=== PATIENT | female | born 2005 | race Caucasian/White ===

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

== ENCOUNTER 2025-04-12 20:26 | Emergency (ER) | payer OTHER, SELFPAY ==
--- OUTSIDE RECORDS SUMMARY | 2025-04-12 20:26 | XMS_ITS | Encounter Summary ---
Author Organization [facility] Address [address] [place] [id number] Phone Care Team Providers Care Grocery Department Manager Name Role Phone Demi Abdullahi DHIRAJ Primary Care Provider [phone] Reason for Visit * Reason Comments ED Admission Encounter Details Date Type Department Care Team ([facility] Contact Info) Description 04/12/2025 8:26 PM EST - 04/13/2025 1:00 AM [facility] - Patient Ping Social History Tobacco Use Types Packs/Day Years Used Date Smoking Tobacco: Never Assessed Smokeless Tobacco: Never Comments:Has used marijuana, tobacco once or twice. Denies currently use. Alcohol Use Standard Drinks/Week Comments Never 0 (1 standard drink = 0.6 oz pur e alcohol) Hunger/Food Answer Date Recorded In the last 12 months, did y ou or your family ever eat less than you felt you should because there wasn't enough money for food? No 09/22/2024 Stable Housing Answer Date Recorded Are you worried that in the next 2 months you may not have stable housing? No 09/22/2024 Transportation Concerns Answer Date Rec orded In the last 12 months, have you or your family ever had to go without healthcare because you didn't have a way to get there? No 09/22/2024 Hazards in Home Answer Date Recorded Think about the place you li ve. Do you have problems with any of the following? Pests (mice or roaches), mold, no/not working smoke detectors, water leaks, no window guards. No 2024 Financing Utilities Answer Date Recorde d In the last 12 months, has t he electric, gas, oil, or water company threatened to shut off your services in your home? No 09/22/2024 Safety at Home Answer Date Recorded Are you or your family worried about feeling saf e in your home? No 09/22/2024 Outside Support Answer Date Recorded Do you feel that you need mo re support from other people or programs to help you care for yourself or your family? No 09/22/2024 Understanding Health Concerns Answer Da te Recorded Do you need help understandi ng your or your child's healthcare needs (diagnosis, medications, plan, etc.)? No 09/22/2024 Financing Health Concerns Answer Date R ecorded In the last 12 months, was t here a time when your child needed to see a doctor or get medications or supplies but could not because of cost? No 09/22/2024 Missing School or Work Answer Date Theodore rded Did you or your child miss s chool or work because of a health problem that could have been avoided? No 09/22/2024 Child Education Answer Date Recorded Do you have concerns about y our/your child's learning or behavior in school, preschool, or daycare? No 09/22/2024 Comments No Sex and Gender Information Value Date Recorded Sex Assigned at Female 09/17/2023 10:48 AM EDT Legal Sex Female 5:10 PM EDT Gender Identity Female 09/17/2023 10:48 AM EDT Sexual Orientation Not on file documented as of this encounter Plan of Treatment Not on file documented as of this encounter Visit Diagnoses Not on filedocumented in this encounter Care Teams Grocery Department Manager Relationship Specialty Start Date End Date Demi Abdullahi NP [address] [place] [id number] PCP - General Pediatrics 09/10/23 documented as of this encounter
[2025-04-12 20:39] VITALS: BP 122/67; PULSE 102; RESP 16; TEMP 36.4; O2SAT 98; BMI 18.7
[2025-04-12 20:53] LABS: MANUAL DIFF FLAG NO
[2025-04-12 20:55] LABS: Hematocrit 29.9 % (37.0-47.0); Hemoglobin 9.5 g/dl (12.0-16.0); Imm Gran Abs Auto 0.04 X10*3/uL (0.00-0.03); Imm Gran Pct Auto 0.4 % (0.0-0.4); Lymphocytes Absolute Auto 1.8 X10*3/uL (1.2-4.9); Mean Corpuscular HGB Conc 31.8 g/dl (31.0-35.0); Mean Corpuscular Hemoglobin 25.5 pg (27.0-33.0); Mean Corpuscular Volume 80.2 fL (80.0-98.0); NRBC Abs Auto 0.000 X10*3/uL (0.0-0.012); NRBC Pct Auto 0.0 /100WBC (0.0-0.2); Platelet Count 245 X10*3/uL (160-400); Red Blood Count 3.73 X10*6/uL (4.20-5.50); White Blood Count 9.1 X10*3/uL (4.8-10.8)
[2025-04-12 21:16] LABS: Alanine Aminotransferase 9 U/L (0-31); Albumin Level 3.9 g/dL (3.5-5.0); Alkaline Phosphatase 44 U/L (39-117); Anion Gap 10 (12-20); Aspartate Amino Transferase 16 U/L (5-31); Blood Urea Nitrogen 6 mg/dL (9-16); Calcium 8.8 mg/dL (8.4-10.2); Carbon Dioxide 23 mmol/L (22-29); Chloride 109 mmol/L (96-108); Creatinine Clr Calc Pharmacy 169.1; Estimated Glomerular Filt Rate > 60; Potassium 3.7 mmol/L (3.3-5.1); Sodium 138 mmol/L (135-145); Total Protein 6.8 g/dL (6.5-8.0)
--- NOTE | 2025-04-12 22:26 | ED_ITS ---
HPI - General Adult General Chief complaint: General Medical Stated complaint: Issues Time Seen by Provider: 04/12/25 22:20 Source: patient Mode of arrival: ambulatory Limitations: no limitations History of Present Illness ED Provider: Dr. Nasima Marsh HPI narrative: 19-year-old female approximately 18-19 weeks who presents with two days of severe mid-upper back pain. Symptoms began suddenly when she awoke from sleep with a sharp, shooting pain ?around the spine? after possibly stretching awkwardly during sleep. Earlier that evening she had moved bedroom furniture (sister performed heavy lifting, patient moved photo stylist items) without noted injury. Pain localizes to the mid-thoracic paraspinal / scapular region, somewhat worse on right side, and is markedly worsened by movement (standing up, turning over, twisting, reaching overhead, elbows out) and by deep inspiration when pain is at its peak. Pain is minimal while lying flat and at rest. She has taken no medications at home. She also notes a minor headache present since symptom onset that has improved but persists. Denies fever, cough, URI symptoms, abdominal pain, dysuria, bowel changes, vaginal bleeding, or vaginal discharge. No prior similar episodes. Related Data Previous Rx's ?Medication ?Instructions ?Recorded ondansetron 4 mg disintegrating 4 mg PO Q6-8H PRN naus ea and 06/15/24 tablet vomiting #14 tabs hydroxyzine HCl 25 mg tablet 25 mg PO Q8H PRN anxiety #14 tabs 09/14/24 lorazepam 0.5 mg tablet (Ativan) 0.5 mg PO BID PRN anx iety #5 tabs 11/06/24 hydroxyzine HCl 25 mg tablet 25 mg PO TID PRN anxiety #10 tabs 11/08/24 Allergies Allergy/AdvReac Type Severity Reaction Status Date / Time No Known Allergies Allergy Verified 04/12/25 20:41 Review of Systems 2 Review of Systems: as per HPI, full review of systems performed and negative but for the above mentioned pertinent positives and negatives. [facility] Past Medical History Medical History (Updated 04/13/25 @ 00:07 by Nasima Marsh DO) Anxiety disorder with panic attacks Social History Social History Alcohol intake: never Smoked in Last 30 Days: No Use of substances other than those prescribed or required for medical reasons: No Substance Use Type: Marijuana Any prior treatment program specific to substance use: No Advance Directives: No Advance Directives Information Provided: No Patient : Yes Physical Exam ED Exam Exam: GENERAL: Non-toxic appearing, appears uncomfortable. SKIN: Normal skin color for ethnicity, warm, dry, no rashes noted. HEENT:? Normocephalic, atraumatic, no stridor, dry mucous membranes, dentition intact, EOMI. NECK: Soft, supple, full ROM, midline structures nontender, no step-offs, no deformities, no lymphadenopathy. CHEST: Heart regular rhythm, no murmurs, symmetric chest rise and fall. PULMONARY: Clear to auscultation bilaterally, diminished at the bases, no labored breathing, no wheezes/rhales/rhonchi. ABDOMINAL: Soft, gravid, nontender, positive bowel sounds in all quadrants. : Deferred. MUSCULOSKELETAL: Normal tone, full range of motion, no deformities, no peripheral edema, T5-6 paraspinal tenderness to palpation with mild hypertonicity of the paraspinal musculature, no step offs, neurovascularly intact distally. NEURO: Alert and oriented x3, CN II through XII intact, equal strength and sensation bilateral upper and lower extremities, no focal neurologic deficits.? PSYCHIATRIC: Flat affect, fluid speech, good eye contact and appropriate demeanor. Vital Signs: Vital Signs - 24 hr 04/12/25 20:39 04/12/25 22:31 Temperature 97.6 F 98.3 F Pulse Rate 102 H 77 Respiratory Rate 16 14 Blood Pressure 122/67 112/61 Pulse Oximetry 98 100 Oxygen Delivery Method Room Air Room Air BMI result Body Mass Index 18.7 Medications Administered Discontinued Medications Generic Name Dose Route Start Last Admin Trade Name Freq PRN Reason Stop Dose Admin Acetaminophen 325 mg 04/12/25 23:05 04/12/25 23:21 Acetaminophen 325 Mg Tablet PO 04/12/25 23:06 325 mg ONCE ONE Administration Lidocaine 1 patch 04/12/25 23:05 04/12/25 23:19 Lidocaine 4 % Patch Adh..Patch TRANSDERMA 04/12/25 23:06 1 patch ONCE ONE Administration Protocol Medical Decision Making Medical Decision Making MDM Narrative: 19-year-old female at 18-19 weeks with acute musculoskeletal mid- thoracic back/rib pain likely related to muscular strain, with associated improved mild headache. assessment reassuring on bedside US. UTI to be ruled out. Problem #1: Musculoskeletal thoracic back/rib strain Assessment: Acute sharp paraspinal/rib pain precipitated by possible over- stretch or movement while sleeping, exacerbated by movement and deep inspiration; focal tenderness on exam; no radicular symptoms. Plan: * Acetaminophen 325 mg PO x1 dose in ED; advise lowest effective dose, may take up to two tablets at a time, maximum two tablets per dose, up to three times daily as needed. * Topical lidocaine patch applied to area of maximal tenderness for localized analgesia (minimal systemic absorption; safe in ). * Non-pharmacologic measures: warm compress/heating pad and gentle massage as tolerated. * Discharge home after urine results reviewed if no abnormality detected. Problem #2: Intrauterine , 18-19 weeks, routine Assessment: Viable franco gestation; bedside US with heart rate 145 bpm, appropriate size and activity; no vaginal bleeding or abdominal pain. Plan: * Reassured patient of normal status today. * Patient has not yet established care with an PRINCIPAL DATABASE DEVELOPER; has had some appointments at [facility] but no ongoing provider. Problem #3: Mild tension-type headache Assessment: Minor headache, improving; no concerning features. Plan: * Expect improvement with acetaminophen dosing given for back pain. Patient provided instructions on urine sample collection and educated regarding medication use and non-pharmacologic pain relief strategies. Will discharge home after urine results reviewed if no abnormality detected. Differential Diagnosis Differential Diagnoses: The differential diagnosis associated with the presentation includes (as above) Lab Data MDM Lab Attestation statement: I reviewed the patient's lab results. 04/12/25 20:49 04/12/25 20:48 Labs: Lab Results 04/12/25 04/12/25 04/12/25 Range/Units 20:48 20:49 22:34 WBC 9.1 (4.8-10.8) X10*3/uL RBC 3.73 L (4.20-5.50) X10*6/uL Hgb 9.5 L (12.0-16.0) g/dl Hct 29.9 L (37.0-47.0) % MCV 80.2 (80.0-98.0) fL MCH 25.5 L (27.0-33.0) pg MCHC 31.8 (31.0-35.0) g/dl RDW 15.1 (11.0-16.0) % Plt Count 245 D (160-400) X10*3/uL MPV 9.4 (9.4-12.3) fL Immature Gran % (Auto) 0.4 (0.0-0.4) % Neut % (Auto) 71.9 (45-73) % Lymph % (Auto) 19.8 L (20-40) % [place] % (Auto) 6.3 (2-11) % Eos % (Auto) 1.3 (0-4) % Baso % (Auto) 0.3 (0-2) % Lymph # (Auto) 1.8 (1.2-4.9) X10*3/uL [place] # (Auto) 0.6 (0.1-1.2) X10*3/uL Eos # (Auto) 0.1 (0.0-0.4) X10*3/uL Baso # (Auto) 0.0 (0.0-0.2) X10*3/uL Abs Immat Gran (auto) 0.04 H (0.00-0.03) X10*3/uL Absolute Neuts (auto) 6.5 (2.0-8.3) x10*3/uL Absolute Nucleated RBC 0.000 (0.0-0.012) X10*3/uL Nucleated RBC % (auto) 0.0 (0.0-0.2) /100WBC Sodium 138 (135-145) mmol/L Potassium 3.7 (3.3-5.1) mmol/L Chloride 109 H (96-108) mmol/L Carbon Dioxide 23 (22-29) mmol/L Anion Gap 10 L (12-20) BUN 6 L (9-16) mg/dL Creatinine 0.43 L (0.5-1.4) mg/dL Estim Creat Clear Calc 169.1 Estimated GFR > 60 Random Glucose 102 (60-115) mg/dL Calcium 8.8 D (8.4-10.2) mg/dL Total Bilirubin 0.2 (0.0-1.0) mg/dL AST 16 (5-31) U/L ALT 9 (0-31) U/L Alkaline Phosphatase 44 (39-117) U/L Total Protein 6.8 (6.5-8.0) g/dL Albumin 3.9 (3.5-5.0) g/dL Beta HCG, Quant 48069 mIU/mL Urine Color Urine Appearance Urine pH (5.0-9.0) Ur Specific Dickens (1.005-1.025) Urine Protein (Neg-Trace) mg/dL Urine Glucose (UA) (Negative) mg/dL Urine Ketones (Negative) mg/dL Urine Blood (Negative) Urine Nitrite (Negative) Ur Leukocyte Esterase (Negative) COVID-19 (TARA) Negative (Negative) COVID-19 Clin Com See Note Influenza Type A (SHAHAB) Negative (Negative) Influenza Type B (SHAHAB) Negative (Negative) Influenza A & B Note See Note 04/12/25 Range/Units 23:18 WBC (4.8-10.8) X10*3/uL RBC (4.20-5.50) X10*6/uL Hgb (12.0-16.0) g/dl Hct (37.0-47.0) % MCV (80.0-98.0) fL MCH (27.0-33.0) pg MCHC (31.0-35.0) g/dl RDW (11.0-16.0) % Plt Count (160-400) X10*3/uL MPV (9.4-12.3) fL Immature Gran % (Auto) (0.0-0.4) % Neut % (Auto) (45-73) % Lymph % (Auto) (20-40) % [place] % (Auto) (2-11) % Eos % (Auto) (0-4) % Baso % (Auto) (0-2) % Lymph # (Auto) (1.2-4.9) X10*3/uL [place] # (Auto) (0.1-1.2) X10*3/uL Eos # (Auto) (0.0-0.4) X10*3/uL Baso # (Auto) (0.0-0.2) X10*3/uL Abs Immat Gran (auto) (0.00-0.03) X10*3/uL Absolute Neuts (auto) (2.0-8.3) x10*3/uL Absolute Nucleated RBC (0.0-0.012) X10*3/uL Nucleated RBC % (auto) (0.0-0.2) /100WBC Sodium (135-145) mmol/L Potassium (3.3-5.1) mmol/L Chloride (96-108) mmol/L Carbon Dioxide (22-29) mmol/L Anion Gap (12-20) BUN (9-16) mg/dL Creatinine (0.5-1.4) mg/dL Estim Creat Clear Calc Estimated GFR Random Glucose (60-115) mg/dL Calcium (8.4-10.2) mg/dL Total Bilirubin (0.0-1.0) mg/dL AST (5-31) U/L ALT (0-31) U/L Alkaline Phosphatase (39-117) U/L Total Protein (6.5-8.0) g/dL Albumin (3.5-5.0) g/dL Beta HCG, Quant mIU/mL Urine Color Yellow Urine Appearance Cloudy Urine pH 6.5 (5.0-9.0) Ur Specific Dickens 1.015 (1.005-1.025) Urine Protein Negative (Neg-Trace) mg/dL Urine Glucose (UA) Negative (Negative) mg/dL Urine Ketones Negative (Negative) mg/dL Urine Blood Negative (Negative) Urine Nitrite Negative (Negative) Ur Leukocyte Esterase Negative (Negative) COVID-19 (TARA) (Negative) COVID-19 Clin Com Influenza Type A (SHAHAB) (Negative) Influenza Type B (SHAHAB) (Negative) Influenza A & B Note Independent Interpretation I performed an independent interpretation of an: Ultrasound Interpretation: Obstetric bedside US: Single live intrauterine fetus, heart rate 145 bpm, appropriate movement and size for gestational age. Prescription Management I considered prescription management with: Pain Medication Chronic Conditions Patient?s care impacted by: Other (19 weeks ) Discharge Plan Discharge Clinical Impression: Acute thoracic myofascial strain, Second trimester Patient Disposition: Home, Self-Care Instructions: Muscle Strain (ED) Additional Instructions: Continue to use Tylenol as needed for pain. You can take 325 mg up to 4 times a day. You may also use topical medications such as lidocaine patches which are ofah-ngx-sxtterw. Avoid chiropractic treatments while you are . Follow up with the OBGYN as soon as possible. Return to the emergency department immediately with any new or worsening symptoms including: Worsening pain despite medication, fevers greater than 100?, difficulty breathing, any new symptom that concerns you. Call 911 with any medical emergency. Prescriptions: No Action ondansetron 4 mg tablet,disintegrating 4 mg PO Q6-8H PRN (Reason: nausea and vomiting) Qty: 14 0RF hydroxyzine HCl 25 mg tablet 25 mg PO Q8H PRN (Reason: anxiety) Qty: 14 0RF hydroxyzine HCl 25 mg tablet 25 mg PO TID PRN (Reason: anxiety) Qty: 10 0RF lorazepam [Ativan] 0.5 mg tablet 0.5 mg PO BID PRN (Reason: anxiety) Qty: 5 0RF [place]: [facility] [place] Group, Obstetrics] Print Language: Ghanaian
[2025-04-12 22:31] VITALS: BP 112/61; PULSE 77; RESP 14; TEMP 36.8; O2SAT 100
[2025-04-12 22:57] LABS: COVID-19 Test Negative (Negative); IDNOW Serial# 55D5AD1C
[2025-04-12 22:58] LABS: IDNOW Serial# 58CA691E; Influenza B2 Negative (Negative)
[2025-04-12] MEDS: Lidocaine 4 % Patch ADH..PATCH 1 PATCH TRANSDERMA (23:19)
[2025-04-12 23:34] LABS: Appearance Urine Cloudy; Glucose Urine UA Negative (Negative); PH 6.5 (5.0-9.0); Specific Gravity - Urine 1.015 (1.005-1.025)
[2025-04-13 00:49] VITALS: BP 106/57; PULSE 84; RESP 16; TEMP 36.9; O2SAT 99
[2025-04-13 00:59] VITALS: BP 106/57; PULSE 84; RESP 16; TEMP 36.9; O2SAT 99
--- OUTSIDE RECORDS SUMMARY | 2025-04-13 02:32 | XMS_ITS | Encounter Summary ---
Author Organization [facility] Address [address] [place] [address] Phone Care Team Providers Care Corporate Claims Examiner Name Role Phone Demi Abdullahi MATERIAL CHASER Primary Care Provider [phone] Encounter Details Date Type Department Care Team (Late st Contact Info) Description 10/04/2010 Documentation [facility] [address] [place], [place] [phone] Family Medicine, Physician [address] [place], [place] [phone] Social History Tobacco Use Types Packs/Day Years Used Date Smoking Tobacco: Never Assessed Comments Unknown Sex and Gender Information Value Date Recorded Sex Assigned at Female 09/17/2023 10:48 AM EDT Legal Sex Female 5:10 PM EDT Gender Identity Female 09/17/2023 10:48 AM EDT Sexual Orientation Not on file documented as of this encounter Plan of Treatment Not on file documented as of this encounter Visit Diagnoses Not on filedocumented in this encounter Care Teams Corporate Claims Examiner Relationship Specialty Start Date End Date Demi Abdullahi NP [address] [place] [phone] PCP - General Pediatrics 09/10/23 documented as of this encounter
--- OUTSIDE RECORDS SUMMARY | 2025-04-13 02:32 | XMS_ITS | Encounter Summary ---
Author Organization [facility] Address [address] [place] [address] Phone Care Team Providers Care Naval Aircre[employer] Name Role Phone Demi Abdullahi BENCH LOOM WEAVER Primary Care Provider [phone] Encounter Details Date Type Department Care Team (Late st Contact Info) Description 12/22/2009 Documentation [facility] [place] [address] [place], [place] [phone] Family Medicine, Physician [address], [place] [phone] Social History Tobacco Use Types Packs/Day Years [...] on filedocumented in this encounter Care Teams [employer] Relationship Specialty Start Date End Date Demi Abdullahi NP [address] [place] [address] PCP - General Pediatrics 09/10/23 documented as of this encounter
--- OUTSIDE RECORDS SUMMARY | 2025-04-13 02:32 | XMS_ITS | Clinical Summary ---
Author Organization [facility] Address [address] [place] [address] Phone Care Team Providers Care Compliance Auditor Name Role Phone Demi Abdullahi MATERIALS MANAGEMENT SUPERVISOR Primary Care Provider [phone] Allergies No known active allergies Medications No known medications Active Problems Problem Noted Date Diagnosed Date Trauma and stressor-related disorder 09/22/2024 Anxiety 09/22/2024 Assessment & Plan (09/22/2024 1:25 PM EDT): Oriana is most interested in learning coping skills for when she is feeling anxious and panicky. Discussed consideration of SSRI treatment but she is not interested at this time. WHO to [facility], [place], today. Psychosocial stressors 10/30/2017 Overview (08/18/2020): Was in Detention in 2013. In custody of Dad since 2015. 08/02/20: Call from [facility] - open case. Martin reports that this must be on biologic mom because there is no open case on them (08/18/2020 ) Assessment & Plan (03/17/2019 11:41 AM EST): Still with patient's father & stepmom Biological mother not involved Assessment & Plan (10/30/2017 10:49 AM EDT): Dad says mom has no rights to medical records. He will get us all the paperwork need from courts so we can document Encounters Date Type Department Care Team Description 04/12/2025 8:26 PM EST - 04/13/2025 1:00 AM EST Emergency [facility] - Patient Ping 02/17/2025 Telephone [facility] - [address] [address] Maryjane Combs LPN Discharge Follow-Up - ED 02/16/2025 5:09 PM EDT - 02/16/2025 6:20 PM EDT Emergency [facility] - Patient Ping from Last 3 Months Immunizations Immunization Administration Dates Next Due DTaP 12/22/2009 DTaP 5 06/24/2007, 7,05/28/2006,02/19 H1N1 10/04/2009,02/15/2009 HPV Vaccine 9 Valent 03/17/2019,10/30/2017 Hep A, ped/adol 08/06/2007,01/16/2007 Hep B, ped/adol 10/23/2006,08/13/2006,2005 Hib (HbOC) 08/13/2006,05/28/2006 Hib (PRP-T) 10/04/2010,02/19/2006 IPV 12/22/2009, 7,05/28/2006,02/19 Influenza Split 12/22/2009 Influenza, injectable, quadrivalent 09/20/2015 Influenza, injectable, quadr ivalent, preservative free 03/17/2019 Influenza, injectable, trivalent 009,02/03/2008,06/24/2007,01/16 Influenza, intranasal, quadrivalent 04/09/2014,1 06/16/2012 Influenza, intranasal, trivalent 05/15/2012,12/05 MMR 12/22/2009,01/16/2007 Meningococcal Conj (Menactra) MCV4P 10/30/2017 Meningococcal Conj (Menquadfi) MCV4TT 07/26/2022 Pneumococcal Conjugate 06/24/2007,2006,05/28/2006,02/19 Pneumococcal Conjugate 13-Valent 10/04/2010 Tdap 10/30/2017 Varicella 12/22/2009,01/16/2007 Family History Medical History Relation Name Comments No Known Problems Half-Sister breana Heart attack Paternal Grandfather Relation Name Status Comments Brother Thaddeus Hein Father Deepthi Richter Alive Half-Sister breana Alive Mother Arina Roe Alive Paternal Grandfather Sister 1 Marilu Booth Alive Sister: Alive a nd well, Psoriasis Sister 2 Justino Richter Alive Social History Tobacco Use Types Packs/Day Years Used Date Smoking Tobacco: Never Assessed Smokeless Tobacco: Never Tobacco Cessation:Counseling Given: Not Answered Comments:Has used marijuana, tobacco once or twice. [...] AM EDT Sexual Orientation Not on file Last Filed Vital Signs Vital Sign Reading Time Taken Comments Blood Pressure 119/65 09/22/2024 9:04 AM EDT Pulse 80 09/22/2024 9:04 AM EDT Temperature 36.3 C (97.3 F) 04/15/2013 12:00 AM EST Respiratory Rate - - Oxygen Saturation - - Inhaled Oxygen Concentration - - Weight 46.3 kg (102 lb) 10/30/2024 4:28 PM EDT Height 166.4 cm (5' 5.5 ) 09/22/2024 9:04 AM EDT Body Mass Index 16.72 09/22/2024 9:04 AM EDT Body Mass Index Percentile 1.02% 10/30/2024 4:2 8 PM EDT Growth Chart: CDC (Girls, 2- 20 Years) Plan of Treatment Health Maintenance Due Date Last Done Comments Men B Vaccine (1 of 2 - Standard) 2021 Chlamydia and Gonorrhea Screening 05/06/2024 023 Influenza Vaccines (#1) 2024 03/17/20, 09/20/2015, 04/09/2014, Additional history exists COVID-19 Vaccine (1 - 2024-2 6 season) 2025 DTaP,Tdap,and Td Vaccines (7 - Td or Tdap) 10/31/2027 10/30/2017, 12/22/2009, 06/24/2007, Additional history exists Hepatitis B Vaccines Completed 10/23/2006, 08/13/2006, 2005 Hepatitis A Vaccines Completed 08/06/2007, 01/17/20 07 IPV Vaccines Completed 12/22/2009, 10/05, 05/28/2006, Additional history exists MMR Vaccines Completed 12/22/2009, 01/16/2007 Varicella Vaccines Completed 12/22/2009, 01/16/2007 HIB Vaccines Completed 10/04/2010, 08/04, 05/28/2006, Additional history exists Pneumococcal Vaccine Completed 10/04/2010, 06/24/2007, 08/13/2006, Additional history exists HPV Vaccines Completed 03/17/2019, 10/30/2017 Meningococcal Vaccine Completed 07/26/2022, 018 Procedures * Due to [place] law, this organization might not be sharing sensitive test results. Procedure Name Priority Date/Time Associated Diagnosis Comments CHLAMYDIA AND GONORRHEA, AMPLIFIED Routine 07/26/2022 3:30 PM EDT Encounter for screening examination for sexually transmitted disease from Last 3 Months or Most Recently Relevant to Health Maintenance Results * Due to [place] law, this organization might not be sharing sensitive test results. * Chlamydia and Gonorrhoea, Amplified (07/26/2022 3:30 PM EDT) Chlamydia Trachomatis, DNA Probe NEGATIVE (NEG) [facility] Comment: No Chlamydia Trachomatis RNA detected in this patient's sample (REFERENCE RANGE/NORMAL VALUE: NOT DETECTED) Note: This test uses resource specialist teacher- mediated amplification method to detect rRNA from C. Trachomatis URINE GC AMP PROBE NEGATIVE (NEG) [facility] Comment: No Neisseria Gonorrhoeae RNA detected in this patient's sample (REFERENCE RANGE/NORMAL VALUE: NOT DETECTED) NOTE: This test uses resource specialist teacher-mediated amplification method to detect rRNA from N.Gonorrhoeae. A negative result does not preclude infection. In the case of a negative urine result, testing of an endocervical(female) or urethral (male) specimen is recommended if there is high clinical suspicion of infection. Due to very high sensitivity of Nucleic Acid Amplification Test, false positive results may occur. Therefore, specimen handling is extremely important. In patients in whom the disease is unlikely, additional sample for testing should be considered after an initial positive result. The performance characteristics of this test have not been evaluated in children. The Aptima Combo2 assay is not intended for the evaluation of suspected sexual abuse or for other medico-legal indications. The ordering provider should assess if the patient had consensual sex without risk of sexual abuse. Consult the [facility] if needed. Contact phone number . Therapeutic failure or success cannot be determined with the Aptima Combo2 assay since nucleic acid may persist following appropriate antimicrobial therapy. The Centers for Disease Control and Prevention (CDC) recommends confirmatory retesting using culture or a different nucleic acid amplification test when positive results occur, if indicated. Testing performed or reported by [facility], a Service of [facility], [address] [place] [address] Fausto Mercedes MD, Supervising Producer [facility]# [id number] Urine (Urine) 07/26/2022 3:3 0 PM EDT 07/26/2022 6:22 PM EDT us Glo Olsen MD LAB MICROBIOLOGY - GENERAL ORDER DIANE Final Result [facility] from Last 3 Months or Most Recently Relevant to Health Maintenance Insurance [facility] NON PCC [facility] ACO Care Teams Compliance Auditor Relationship Specialty Start Date End Date Demi Abdullahi NP [address] [place] [phone] PCP - General Pediatrics 09/10/23
--- OUTSIDE RECORDS SUMMARY | 2025-04-13 02:32 | XMS_ITS | Encounter Summary ---
Author Organization [facility] Address [address] [place] [address] Phone Care Team Providers Care Event Specialist Food Demonstrator Name Role Phone Demi Abdullahi NP Primary Care Provider [phone] Encounter Details Date Type Department Care Team ([facility] st Contact Info) Description 12/20/2016 Conversion Encounter [facility] [address] [place] [address] Social History Tobacco Use Types Packs/Day Years [...] on filedocumented in this encounter Care Teams Event Specialist Food Demonstrator Relationship Specialty Start Date End Date Demi Abdullahi NP [address] [place] [address] PCP - General Pediatrics 09/10/23 documented as of this encounter
--- OUTSIDE RECORDS SUMMARY | 2025-04-13 02:32 | XMS_ITS | Encounter Summary ---
Author Organization [facility] Address [address] [place] [address] Phone Care Team Providers Care Ship Mate Name Role Phone Demi bAdullahi GTA Primary Care Provider [phone] Encounter Details Date Type Department Care Team (Late st Contact Info) Description 05/04/2013 Documentation [facility] [place] [address] [place] [address] Family Medicine, Physician [address], [place] [address] Social History Tobacco Use Types Packs/Day Years [...] on filedocumented in this encounter Care Teams Ship Mate Relationship Specialty Start Date End Date Demi Abdullahi NP [address] [place] [phone] PCP - General Pediatrics 09/10/23 documented as of this encounter
--- OUTSIDE RECORDS SUMMARY | 2025-04-13 02:32 | XMS_ITS | Encounter Summary ---
Author Organization [facility] Address [address] [place] [address] Phone Care Team Providers Care Administrative Clerk Name Role Phone Demi Abdullahi FIRER LOW PRESSURE Primary Care Provider [phone] Encounter Details Date Type Department Care Team (Late st Contact Info) Description 12/22/[address] [facility] [place] Family Medicine [address] [place], [place] [phone] Family Medicine, Physician [address] [place], [place] [address] Social History Tobacco Use Types Packs/Day Years [...] on filedocumented in this encounter Care Teams Administrative Clerk Relationship Specialty Start Date End Date Demi Abdullahi NP [address] [place] [address] PCP - General Pediatrics 09/10/23 documented as of this encounter
--- OUTSIDE RECORDS SUMMARY | 2025-04-13 02:32 | XMS_ITS | Encounter Summary ---
Author Organization [facility] Address [address] [place] [id number] Phone Care Team Providers Care Tennis Centre Manager Name Role Phone Demi Abdullahi HAND WASHER Primary Care Provider [phone] Encounter Details Date Type Department Care Team (Late st Contact Info) Description 08/07/2013 Documentation [facility] [place] Family Medicine [address] [place], [place] [id number] Family Medicine, Physician [address] [place], [place] [id number] Social History Tobacco Use Types Packs/Day Years [...] on filedocumented in this encounter Care Teams Tennis Centre Manager Relationship Specialty Start Date End Date Demi Abdullahi NP [address] [place] [id number] PCP - General Pediatrics 09/10/23 documented as of this encounter
--- OUTSIDE RECORDS SUMMARY | 2025-04-13 02:32 | XMS_ITS | Encounter Summary ---
Author Organization [facility] Address [address] [place] [id number] Phone Care Team Providers Care Seat Covers Trimmer Name Role Phone Demi Abdullahi CIVIL PREPAREDNESS TRAINING OFFICER Primary Care Provider [phone] Encounter Details Date Type Department Care Team (Late st Contact Info) Description 06/11/2014 Documentation [facility] [place] Family Medicine [address] [place], [place] [id number] Family Medicine, Physician [address] [place], [place] [id number] Social History Tobacco Use Types Packs/Day Years [...] on filedocumented in this encounter Care Teams Seat Covers Trimmer Relationship Specialty Start Date End Date Demi Abdullahi NP [address] [place] [id number] PCP - General Pediatrics 09/10/23 documented as of this encounter
== END 2025-04-13 01:00 | disposition home or self-care (01) ==
PROVIDERS: Emergency Provider Emergency Medicine; PCP Nurse Practitioner Family
DX: O26.92 Pregnancy related conditions, unspecified, second trimester (principal); G44.209 Tension-type headache, unspecified, not intractable; S29.012A Strain of muscle and tendon of back wall of thorax, initial encounter; Y93.84 Activity, sleeping; Y93.89 Activity, other specified; Y92.098 Other place in other non-institutional residence as the place of occurrence of the external cause; Y99.8 Other external cause status
CPT/HCPCS: 36415; 80053; 81003; 84702; 85025; 87502; 87635; 99283; 99284